=== PATIENT | female | born 1930 | race Caucasian/White ===

== ENCOUNTER 2017-04-07 06:20 | Day surgery (SDC) | payer OTHER, BC ==
[2017-03-31 14:27] LABS: HEMATOCRIT 37.4 % (36.0-48.0); HEMOGLOBIN 12.4 g/dL (12.0-16.0)
--- NOTE | ~2017-04-07 | OP ---
Record Of Operation [facility] [address] [place]. [address] NAME: SHANNON MIX : 32 STATUS : REG [facility]#: [id number] AGE: 86 ADM/REG DATE : 04/07/17 MR#: [id number] REPORT SERV DATE: 04/07/17 DICTATED BY: KIKE CARRILLO DATE: 04/07/17 REPORT STATUS : Draft TRANSCRIBED BY: MODL DATE: 04/07/17 DATE OF PROCEDURE: 04/07/2017 PREOPERATIVE DIAGNOSES: 1. 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 2. Lumbar radiculopathy. POSTOPERATIVE DIAGNOSES: 1. 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 2. Lumbar radiculopathy. PROCEDURES: 1. L1, L2, and L3 kyphoplasty. 2. L1 vertebral body biopsy. 3. Left-sided L3-L4 epidural steroid injections. SURGEON: Kike Carrillo DO. ANESTHESIA: General. ESTIMATED BLOOD LOSS: 5 mL. COMPLICATIONS: None. INDICATIONS: The patient is a very pleasant 86-year-old with intractable back pain and left lower extremity pain, failed conservative treatment, had gait disturbance, inability to ambulate well, and legs giving out. After discussion of the risks and benefits and failed conservative treatment, elected to proceed with the surgery. PROCEDURE IN DETAIL: I identified the patient the holding area. Consent was obtained. Went to the operating room. Underwent general anesthesia with endotracheal intubation. Prepped and draped in the usual sterile fashion. Operative safety pause was performed, and we then proceeded with surgery. Under AP and lateral fluoroscopic images, the pedicles were identified at L1, L2, and L3 bilaterally. Small stab incisions were made over each of the pedicles. Jamshidi needles were placed through the pedicles into the vertebral bodies at L1 through L3 bilaterally. First a core biopsy was taken at L1, sent for pathologic analysis. Kyphon balloons were inserted bilaterally at L1 through L3 into the vertebral body under fluoroscopic guidance. Balloons were inflated and deflated under fluoroscopic guidance, then removed. Kyphon cement was mixed and gently inserted under fluoroscopic guidance at L1 through L3 bilaterally. The L2 level was included even though it was not fractured because I did not want to leave a [place] osteoporotic bone sandwiched between two wet cements and risk additional fracture. Following a good fill, Jamshidi needles were removed. Final AP and lateral images were obtained to verify good placement of all cement. Next, the epidural was performed, a spinal needle was placed under fluoroscopic guidance into the left side L3- 4 interspace confirmed with fluoroscopic guidance, and loss of resistance needle or syringe. The mixture of Depo-Medrol and Marcaine was slowly injected into the left L3-4 interspace. Record Of Operation [facility] [id number] [place]. [address] NAME: SHANNON MIX : 32 STATUS : REG [facility] [place]#: [id number] AGE: 86 ADM/REG DATE : 04/07/17 MR#: [id number] REPORT SERV DATE: 04/07/17 DICTATED BY: KIKE CARRILLO DATE: 04/07/17 REPORT STATUS : Draft TRANSCRIBED BY: MODL DATE: 04/07/17 A spinal needle was then removed. Irrigation was performed. Hemostasis was achieved. Sterile dressings were applied. The patient was awoken and extubated, taken to the recovery room in stable condition. OPERATIVE FINDINGS: Left L3-4 stenosis and L1 and L3 acute compression fracture. LEENA/GILBERTO Kike Carrillo DO / [id number] CC: DO Rach Stern M.D.
[~2017-04-07 06:20] MED LIST: ASA5GR PO; ASAB PO; ASABAYER PO; B12250T PO; C5 PO; CENTRUM TAB1 TAB PO; CIP5 PO; CYANO1000T SL; LIDOCAINE PATCH TOP; MEVACOR PO; MULTIVITAMI1 PO; NORCO1 TA1 PO; VITAMIN B-121000 MC1 SL; X25 PO
== END 2017-04-07 14:13 | disposition home or self-care (01) ==
LOC: SDC 06:20
PROVIDERS: Orthopaedic Surgery
PROC: 0QB03ZX Excision of Lumbar Vertebra, Percutaneous Approach, Diagnostic (ICD-10-PCS; 2017-04-07)
PROC: 3E0S33Z Introduction of Anti-inflammatory into Epidural Space, Percutaneous Approach (ICD-10-PCS; 2017-04-07)
PROC: 3E0S3BZ Introduction of Anesthetic Agent into Epidural Space, Percutaneous Approach (ICD-10-PCS; 2017-04-07)
PROC: B01BYZZ Fluoroscopy of Spinal Cord using Other Contrast (ICD-10-PCS; 2017-04-07)
PROC: 0QS03ZZ Reposition Lumbar Vertebra, Percutaneous Approach (ICD-10-PCS; principal; 2017-04-07 07:45)
PROC: 0QU03JZ Supplement Lumbar Vertebra with Synthetic Substitute, Percutaneous Approach (ICD-10-PCS; 2017-04-07 07:45)
DX: M48.56XA Collapsed vertebra, not elsewhere classified, lumbar region, initial encounter for fracture (principal); M48.06 Spinal stenosis, lumbar region; M51.16 Intervertebral disc disorders with radiculopathy, lumbar region; F41.9 Anxiety disorder, unspecified; M19.90 Unspecified osteoarthritis, unspecified site; Z86.73 Personal history of transient ischemic attack (TIA), and cerebral infarction without residual deficits; Z85.3 Personal history of malignant neoplasm of breast; Z88.6 Allergy status to analgesic agent; Z88.8 Allergy status to other drugs, medicaments and biological substances
CPT/HCPCS: 85014; 85018; 88307; 88311; 93005; 94640; C1726; J0690; J2250; J2710; J3010; Q9967